=== PATIENT | male | born 1995 | race Caucasian/White ===

== ENCOUNTER 2019-09-23 10:57 | Emergency (ER) | payer BC, OTHER ==
[2019-09-23 11:23] VITALS: BP 154/96; PULSE 100
[2019-09-23] MEDS ORDERED: Sodium Chloride 0.9% 10 ML Syringe FLUSH PRN (11:29)
[2019-09-23] MEDS ORDERED: Ondansetron 4 MG/2 ML SDV IVPUSH ONE (11:34)
[2019-09-23] MEDS ORDERED: Sodium Chloride 0.9% 1,000 ML IV SCH (11:45)
--- NOTE | 2019-09-23 12:16 | EDM.PDOC ---
ED HPI GENERAL MEDICAL PROBLEM - General Chief Complaint: General Stated Complaint: FLU LIKE SYMPTOMS Time Seen by Provider: 09/23/19 11:15 Source of Information: Reports: Patient History Limitations: Reports: No Limitations - History of Present Illness INITIAL COMMENTS - FREE TEXT/NARRATIVE: Patient is a 24-year-old male who presents to the ER with complaints of flulike symptoms. Patient states his symptoms initially began last Thursday with a fever , body aches, and shortness of breath. Patient states on Thursday he was swabbed at [facility] for coronavirus and has not had results back yet. Thursday he developed some nausea and vomiting, as well as diarrhea which has continued since then. He states he is unable to keep down liquids or food. He continues to complain of shortness of breath, especially with exertion. States that he went for a walk yesterday and after 0.2 miles he became winded. He continues to run a fever as well. Temperature at home was 102. He took Tylenol 1000 mg around 8:00 this morning. Patient denies sore throat, cough, or ear pain. He has had some mild nasal congestion. He denies any chronic health conditions or underlying lung disease. Patient is not a smoker. Generalized Pain Score (Numeric/FACES): 10 - Related Data Allergies Allergy/AdvReac Type Severity Reaction Status Date / Time No Known Allergies Allergy Verified 09/23/19 11:23 Home Meds: Home Meds Ondansetron [Zofran ODT] 4 mg PO Q6H PRN #15 tab.dis 09/23/19 [Rx] Past Medical History - Past Health History Medical/Surgical History: Denies Medical/Surgical History Social & Family History - Family History Family Medical History: Noncontributory - Tobacco Use Smoking Status *Q: Never Smoker - Caffeine Use Caffeine Use: Reports: None - Recreational Drug Use Recreational Drug Use: No ED ROS GENERAL - Review of Systems Review Of Systems: Comprehensive ROS is negative, except as noted in HPI. ED EXAM, GENERAL - Physical Exam Exam: See Below Exam Limited By: No Limitations General Appearance: Alert, WD/WN, No Apparent Distress Respiratory/Chest: No Respiratory Distress, Lungs Clear, Normal Breath Sounds, No Accessory Muscle Use, Chest Non-Tender. No: Decreased Breath Sounds, Crackles, Rhonchi, Wheezing Cardiovascular: Normal Peripheral Pulses, Regular Rate, Rhythm, No Edema, No Gallop, No JVD, No Murmur, No Rub GI/Abdominal: Normal Bowel Sounds, Soft, Non-Tender, No Organomegaly, No Distention, No Abnormal Bruit, No Mass Extremities: Normal Inspection, Normal Range of Motion, Non-Tender, Normal Capillary Refill, No Pedal Edema Neurological: Alert, Oriented, CN II-XII Intact, Normal Cognition, Normal Gait, Normal Reflexes, No Motor/Sensory Deficits Psychiatric: Normal Affect, Normal Mood Skin Exam: Warm, Intact, Normal Color, No Rash, Diaphoretic (Mildly). No: Rash Course - Vital Signs Last Recorded V/S: Last Vital Signs Temp 99.2 F 09/23/19 11:13 Pulse 100 09/23/19 11:13 Resp 24 H 09/23/19 11:13 BP 154/96 H 09/23/19 11:13 Pulse Ox 91 L 09/23/19 11:13 - Orders/Labs/Meds Orders: Active Orders 24 hr Category Date Time Status Peripheral IV Care [RC] . DIRECTED Care 09/23/19 11:29 Active Sodium Chloride 0.9% [Normal Saline] 1,000 ml Med 09/23/19 11:45 Active IV ASDIRECTED Sodium Chloride 0.9% [Saline Flush] Med 09/23/19 11:29 Active 10 ml FLUSH ASDIRECTED PRN Isolation [COMM] Routine Oth 09/23/19 11:29 Ordered Peripheral IV Insertion Adult [OM.PC] Stat Oth 09/23/19 11:27 Ordered Medication Orders Sodium Chloride (Normal Saline) 1,000 mls @ 999 mls/hr IV ASDIRECTED JEFF Last Admin: 09/23/19 12:01 Dose: 999 mls/hr Sodium Chloride (Saline Flush) 10 ml FLUSH ASDIRECTED PRN PRN Reason: Keep Vein Open Last Admin: 09/23/19 12:02 Dose: 10 ml Labs: Laboratory Tests 09/23/19 09/23/19 09/23/19 Range/Units 12:00 12:00 12:00 WBC 11.74 H (4.23-9.07) K/mm3 RBC 4.99 (4.63-6.08) M/mm3 Hgb 14.7 (13.7-17.5) gm/dl Hct 42.9 (40.1-51.0) % MCV 86.0 (79.0-92.2) fl MCH 29.5 (25.7-32.2) pg MCHC 34.3 (32.2-35.5) g/dl RDW Std Deviation 38.8 (35.1-43.9) fL Plt Count 297 (163-337) K/mm3 MPV 10.0 (9.4-12.3) fl Neut % (Auto) 89.7 H (34.0-67.9) % Lymph % (Auto) 7.5 L (21.8-53.1) % Heard % (Auto) 2.5 L (5.3-12.2) % Eos % (Auto) 0.1 L (0.8-7.0) Baso % (Auto) 0.1 (0.1-1.2) % Neut # (Auto) 10.54 H (1.78-5.38) K/mm3 Lymph # (Auto) 0.88 L (1.32-3.57) K/mm3 Heard # (Auto) 0.29 L (0.30-0.82) K/mm3 Eos # (Auto) 0.01 L (0.04-0.54) K/mm3 Baso # (Auto) 0.01 (0.01-0.08) K/mm3 Manual Slide Review Abnormal smear Sodium 138 (136-145) mEq/L Potassium 3.9 (3.5-5.1) mEq/L Chloride 102 (98-107) mEq/L Carbon Dioxide 25 (21-32) mEq/L Anion Gap 14.9 (5-15) BUN 11 (7-18) mg/dL Creatinine 1.2 (0.7-1.3) mg/dL Est Cr Clr Drug Dosing 109.12 mL/min Estimated GFR (MDRD) > 60 (>60) mL/min BUN/Creatinine Ratio 9.2 L (14-18) Glucose 113 H (74-106) mg/dL Lactic Acid 0.9 (0.4-2.0) mmol/L Calcium 9.9 (8.5-10.1) mg/dL Magnesium (1.8-2.4) mg/dl Total Bilirubin 1.2 H (0.2-1.0) mg/dL AST 16 (15-37) U/L ALT 32 (16-63) U/L Alkaline Phosphatase 89 (46-116) U/L C-Reactive Protein 45.2 H* (<1.0) mg/dL Total Protein 8.9 H (6.4-8.2) g/dl Albumin 3.5 (3.4-5.0) g/dl Globulin 5.4 gm/dL Albumin/Globulin Ratio 0.7 L (1-2) / Range/Units 12:20 WBC (4.23-9.07) K/mm3 RBC (4.63-6.08) M/mm3 Hgb (13.7-17.5) gm/dl Hct (40.1-51.0) % MCV (79.0-92.2) fl MCH (25.7-32.2) pg MCHC (32.2-35.5) g/dl RDW Std Deviation (35.1-43.9) fL Plt Count (163-337) K/mm3 MPV (9.4-12.3) fl Neut % (Auto) (34.0-67.9) % Lymph % (Auto) (21.8-53.1) % Heard % (Auto) (5.3-12.2) % Eos % (Auto) (0.8-7.0) Baso % (Auto) (0.1-1.2) % Neut # (Auto) (1.78-5.38) K/mm3 Lymph # (Auto) (1.32-3.57) K/mm3 Heard # (Auto) (0.30-0.82) K/mm3 Eos # (Auto) (0.04-0.54) K/mm3 Baso # (Auto) (0.01-0.08) K/mm3 Manual Slide Review Sodium (136-145) mEq/L Potassium (3.5-5.1) mEq/L Chloride (98-107) mEq/L Carbon Dioxide (21-32) mEq/L Anion Gap (5-15) BUN (7-18) mg/dL Creatinine (0.7-1.3) mg/dL Est Cr Clr Drug Dosing mL/min Estimated GFR (MDRD) (>60) mL/min BUN/Creatinine Ratio (14-18) Glucose (74-106) mg/dL Lactic Acid (0.4-2.0) mmol/L Calcium (8.5-10.1) mg/dL Magnesium 2.0 (1.8-2.4) mg/dl Total Bilirubin (0.2-1.0) mg/dL AST (15-37) U/L ALT (16-63) U/L Alkaline Phosphatase (46-116) U/L C-Reactive Protein (<1.0) mg/dL Total Protein (6.4-8.2) g/dl Albumin (3.4-5.0) g/dl Globulin gm/dL Albumin/Globulin Ratio (1-2) Meds: Medications Generic Name Dose Route Start Last Admin Trade Name Freq PRN Reason Stop Dose Admin Sodium Chloride 1,000 mls @ 999 mls/hr 09/23/19 11:45 09/23/19 12:01 Normal Saline IV 999 mls/hr ASDIRECTED JEFF Administration Sodium Chloride 10 ml 09/23/19 11:29 09/23/19 12:02 Saline Flush FLUSH 10 ml ASDIRECTED PRN Administration Keep Vein Open Discontinued Medications Generic Name Dose Route Start Last Admin Trade Name Freq PRN Reason Stop Dose Admin Ondansetron HCl 4 mg 09/23/19 11:34 09/23/19 12:01 Zofran IVPUSH 09/23/19 11:35 4 mg ONETIME ONE Administration - Re-Assessments/Exams Free Text/Narrative Re-Assessment/Exam: 09/23/19 12:52 WBC was slightly elevated at 11.74 with a slight left shift. Anion gap and electrolytes were found to be normal. CRP is elevated at 45.2. Chest x-ray was significant for interstitial changes in the right perihilar region presumably viral in nature. Based on patient's history and work-up results, I feel it is highly likely that he is suffering from Covid19. Oxygen saturations have ranged from 93 to 96% on room air while in the ER. Heart rate is currently in the 80s. We will discharge the patient home with Zofran for nausea and recommendations that he continue to isolate himself. Discussed to continue to monitor his symptoms and return to ER for worsening shortness of breath. Discussed that regardless of the test results, his clinical work-up is consistent with that of Covid19 so he should treated as such. Recommend that he continue to self quarantine until fever free without antipyretics for 3 days and other symptoms improving. Departure - Departure Time of Disposition: 13:22 Disposition: Home, Self-Care 01 Condition: Fair Clinical Impression: 2019 novel coronavirus disease (COVID-19) - Discharge Information *PRESCRIPTION DRUG MONITORING PROGRAM REVIEWED*: No *COPY OF PRESCRIPTION DRUG MONITORING REPORT IN PATIENT BELKIS: No Prescriptions: Ondansetron [Zofran ODT] 4 mg PO Q6H PRN #15 tab.dis PRN Reason: Nausea/Vomiting Instructions: Coronavirus Information 08/22/19 Referrals: Hiren Wade Jr, MD [Primary Care Provider] - Forms: ED Department Discharge Additional Instructions: You were seen in the emergency department today for fever, shortness of breath, nausea, vomiting, and weakness. Your work-up included blood work and a chest x- ray. You were previously tested at [facility] on Thursday for coronavirus and these results are still pending. Your chest x-ray was positive for a mild right-sided viral pneumonia. Your inflammatory marker in your blood was also elevated. Your blood work was otherwise normal. As we discussed, your clinical presentation supports a diagnosis of Covid19. While in the ER, your oxygen saturations were on the low end of normal. You received a liter of IV fluids as well as Zofran for nausea. Recommend that you go home and rest. Ensure you are taking in adequate fluids. You may use the Zofran that was prescribed as needed for nausea. Continue to monitor your symptoms and return to ER for any respiratory distress or other worsening symptoms of concern. As we discussed, regardless of what your test results from [facility] show, you should operate under assumption that you do have Covid19 as there is about a 25 to 30% false-negative rate on the coronavirus tests. You should stay home from work and continue to self isolate until you are fever free for 3 days without the use of Tylenol or ibuprofen and your other symptoms are improving. Return to ER as needed. Sepsis Event Note - Evaluation Sepsis Screening Result: Possible Sepsis Risk - Focused Exam Vital Signs: Vital Signs Temp Pulse Resp BP Pulse Ox 09/23/19 11:13 99.2 F 100 24 H 154/96 H 91 L Date Exam was Performed: 09/23/19 Time Exam was Performed: 13:22 - My Orders Last 24 Hours: My Active Orders 09/23/19 11:27 Peripheral IV Insertion Adult [OM.PC] Stat 09/23/19 11:29 Peripheral IV Care [RC] . DIRECTED Sodium Chloride 0.9% [Saline Flush] 10 ml FLUSH ASDIRECTED PRN Isolation [COMM] Routine 09/23/19 11:45 Sodium Chloride 0.9% [Normal Saline] 1,000 ml IV ASDIRECTED - Assessment/Plan Last 24 Hours: My Active Orders 09/23/19 11:27 Peripheral IV Insertion Adult [OM.PC] Stat 09/23/19 11:29 Peripheral IV Care [RC] . DIRECTED Sodium Chloride 0.9% [Saline Flush] 10 ml FLUSH ASDIRECTED PRN Isolation [COMM] Routine 09/23/19 11:45 Sodium Chloride 0.9% [Normal Saline] 1,000 ml IV ASDIRECTED
--- NOTE | 2019-09-23 12:42 | CR ---
Chest: Portable view of the chest was obtained. Comparison: No previous chest x-ray is available. Slight interstitial change is noted within the right perihilar region most prominent within the right lower perihilar area. Left lung is felt to be clear. Heart size and mediastinum are normal. Bony structures are grossly intact. Impression: 1. Interstitial change within the right perihilar region as described above. Findings presumably represent infection which is most likely viral in etiology. Diagnostic code #3 Study was dictated in MDT
== END 2019-09-23 14:05 | disposition home or self-care (01) ==
LOC: JD.ED 10:57
DX: U07.1 COVID-19 (principal)
CPT/HCPCS: 36415; 71045; 80053; 83605; 83735; 85025; 86140; 96361; 96374; 99285; J2405; J7030; 99284

== ENCOUNTER 2020-02-04 11:31 | Emergency (ER) | payer BC, OTHER ==
[2020-02-04 11:45] VITALS: BP 134/76; PULSE 74
[2020-02-04] MEDS ORDERED: HYDROmorphone 1 MG/ML Syringe IM ONE (11:48)
--- NOTE | 2020-02-04 11:59 | EDM.PDOC ---
ED HPI GENERAL MEDICAL PROBLEM - General Chief Complaint: Lower Extremity Injury/Pain Stated Complaint: L KNEE INJURY Time Seen by Provider: 02/04/20 11:39 Source of Information: Reports: Patient, RN Notes Reviewed History Limitations: Reports: No Limitations - History of Present Illness INITIAL COMMENTS - FREE TEXT/NARRATIVE: Patient is a 24-year-old male who presents to the ED for a left knee injury. He was at football practice, and they were scrimmaging, and he states that he got hit on the lateral surface of his left knee. He was wearing knee braces, but he felt and heard a pop at that time. He has history of a minor MCL sprain or strain, and this did not require surgery. He has a little bit of numbness and tingling to his left foot, he states is very hard to bear weight as is very painful. He can wiggle toes in all range of motion. There is some slight swelling noted to the knee itself. He was put in a knee immobilizer and crutches, and sent here for evaluation. He would rate his pain at a 10 out of 10, he did not take any sort of medications for pain management prior to coming to the ER. Left Knee Pain Score (Numeric/FACES): 10 - Related Data Allergies Allergy/AdvReac Type Severity Reaction Status Date / Time No Known Allergies Allergy Verified 02/04/20 11:45 Home Meds: Home Meds . [No Known Home Meds] 02/04/20 [History] Past Medical History - Past Health History Medical/Surgical History: Denies Medical/Surgical History Musculoskeletal History: Reports: Other (See Below) Other Musculoskeletal History: MCL strain/sprain of left knee Social & Family History - Family History Family Medical History: Noncontributory - Tobacco Use Smoking Status *Q: Never Smoker Second Hand Smoke Exposure: No - Caffeine Use Caffeine Use: Reports: Coffee - Recreational Drug Use Recreational Drug Use: No Review of Systems - Review of Systems Review Of Systems: Comprehensive ROS is negative, except as noted in HPI. ED EXAM, GENERAL - Physical Exam Exam: See Below Exam Limited By: No Limitations General Appearance: Alert, WD/WN, No Apparent Distress Throat/Mouth: Normal Inspection, Normal Lips, Normal Teeth, Normal Gums, Normal Oropharynx, Normal Voice, No Airway Compromise Head: Atraumatic, Normocephalic Neck: Normal Inspection Respiratory/Chest: No Respiratory Distress, Lungs Clear, Normal Breath Sounds, No Accessory Muscle Use, Chest Non-Tender Cardiovascular: Normal Peripheral Pulses, Regular Rate, Rhythm, No Murmur Peripheral Pulses: 2+: Dorsalis Pedis (L), Dorsalis Pedis (R) Extremities: Normal Inspection, Normal Capillary Refill, Limited Range of Motion (of left knee d/t pain) Neurological: Alert, Oriented, Normal Cognition, No Motor/Sensory Deficits Psychiatric: Normal Affect, Normal Mood Skin Exam: Warm, Dry, Intact, Normal Color, No Rash Course - Vital Signs Last Recorded V/S: Last Vital Signs Temp 97 F 02/04/20 11:44 Pulse 74 02/04/20 11:44 Resp 16 02/04/20 11:44 BP 134/76 02/04/20 11:44 Pulse Ox 95 02/04/20 11:44 - Orders/Labs/Meds Orders: Active Orders 24 hr Category Date Time Status Knee 3V Lt [CR] Stat Exams 02/04/20 11:44 Ordered Meds: Medications Discontinued Medications Generic Name Dose Route Start Last Admin Trade Name Talhaq PRN Reason Stop Dose Admin Hydromorphone HCl 1 mg 02/04/20 11:48 02/04/20 12:07 Dilaudid IM 02/04/20 11:49 1 mg ONETIME ONE Administration - Re-Assessments/Exams Free Text/Narrative Re-Assessment/Exam: 02/04/20 11:58 Patient presents the ED for evaluation of his left knee injury. Have ordered x- rays to evaluate for bony injury, and will provide him with an MRI order so he can get this done sometime next week for further evaluation, he will have to follow-up with Dr. Olivia for management. 1 mg IM Dilaudid has been ordered for pain relief. We will likely send the patient home with a few tablets of Harrison, and have him also take some ibuprofen for inflammation relief. 02/04/20 12:08 The patient's knee x-ray demonstrates no focal abnormalities. No bony injury, official radiology read is pending at this time. Departure - Departure Time of Disposition: 12:09 Disposition: Home, Self-Care 01 Condition: Good Clinical Impression: Left knee injury Qualifiers: Encounter type: initial encounter Qualified Code(s): S89.92XA - Unspecified injury of left lower leg, initial encounter - Discharge Information *PRESCRIPTION DRUG MONITORING PROGRAM REVIEWED*: No *COPY OF PRESCRIPTION DRUG MONITORING REPORT IN PATIENT BELKIS: No Instructions: Pain Medicine Instructions, [id number] Referrals: Hiren Wade Jr, MD [Primary Care Provider] - Forms: ED Department Discharge Additional Instructions: You have been evaluated in the ED for your left knee injury. Your x-ray demonstrated no acute fracture or other bony abnormality. There is high suspicion of soft tissue injury like a possible ligament tear; an MRI order has been provided on your behalf, for further evaluation of your knee injury. Our radiology department will call you sometime next week to schedule you for this appointment. If you do not hear from them by mid-next week please call [phone] and as for the radiology department. Please use ice as tolerated to the affected area. Please try to elevate the affected area as much as possible to provide further swelling relief. Use the knee immobilizer as tolerated for further pain relief and utilize the crutches for walking. You may take ibuprofen 600mg q6 hrs for pain relief. Please do so until you have a tolerable level of pain with activity. Do not exceed 3200mg ibuprofen in a 24 hour time period. You were given a prescription for a strong pain medication, hydrocodone/acetaminophen 5/325 mg, please take 1 tab every 6 hours as needed for pain not relieved by Tylenol or ibuprofen alone. Please note this does contain Tylenol (acetaminophen), so do not take more than 4000 mg in a 24-hour time span. These medications can be addictive, so please take as few as possible to achieve adequate pain control. These meds can also be quite constipating, recommend that you increase your oral fluid intake and take a stool softener like MiraLAX while taking these medications. Please call Ortho for follow-up and further evaluation after your MRI has been performed. Dr. Olivia is our orthopedic surgeon, his office number is [phone]. Please return to ED if your symptoms should change or worsen. Sepsis Event Note (ED) - Evaluation Sepsis Screening Result: No Definite Risk - Focused Exam Vital Signs: Vital Signs Temp Pulse Resp BP Pulse Ox 02/04/20 11:44 97 F 74 16 134/76 95 - My Orders Last 24 Hours: My Active Orders 02/04/20 11:44 Knee 3V Lt [CR] Stat - Assessment/Plan Last 24 Hours: My Active Orders 02/04/20 11:44 Knee 3V Lt [CR] Stat
--- NOTE | 2020-02-04 12:18 | CR ---
Left knee: AP, lateral and sunrise patellar views left knee were obtained. Comparison: No prior left knee imaging. Medial and lateral joint compartments are maintained in height. No joint effusion is appreciated. Patellofemoral joint appears within normal limits. No discrete fracture or other abnormality is appreciated. Impression: 1. No abnormality is appreciated on left knee exam. Diagnostic code #1 This report was dictated in MDT
== END 2020-02-04 12:38 | disposition home or self-care (01) ==
LOC: JD.ED 11:31
DX: S89.92XA Unspecified injury of left lower leg, initial encounter (principal); W21.01XA Struck by football, initial encounter; Y93.61 Activity, american tackle football
CPT/HCPCS: 73562; 96372; 99283; J1170